=== PATIENT | female | born 1965 | race Hispanic/Latino ===

== ENCOUNTER 2021-12-12 13:20 | Outpatient (CLI) | payer MEDICARE | END 2021-12-12 13:21 | disposition home or self-care (01) | LOC: BICMAMMO 13:20 | PROVIDERS: ATTEND Internal Medicine | DX: N64.89 Other specified disorders of breast (principal); Q83.9 Congenital malformation of breast, unspecified; R92.1 Mammographic calcification found on diagnostic imaging of breast | CPT/HCPCS: 76642; 77065; G0279 ==

== ENCOUNTER 2022-01-30 12:03 | Outpatient (CLI) | payer MEDICARE ==
[2022-01-30 13:11] LABS: #Basophils 0.1 10x3/uL (0.0-0.2); #Eosinphils 0.1 10x3/uL (0.0-0.5); #Monocytes 0.6 10x3/uL (0.0-1.1); #Neutrophils 3.6 10x3/uL (1.5-8.4); %Basophils 1.2 % (0.0-2.0); %Eosinophils 1.7 % (0.0-6.0); %Lymphocytes 29.5 % (18.0-47.0); %Monocytes 9.7 % (0.0-10.0); %Neutrophils 55.9 % (40.0-75.0); Hemoglobin 11.6 g/dL (12.0-15.5); Mean Corpuscular HGB CONC 33.9 g/dL (32.0-36.0); Mean Corpuscular Hemoglobin 31.5 pg (27.0-33.0); Mean Corpuscular Volume 92.9 fl (81.6-98.3); Mean Platelet Volume 9.3 fl (7.4-10.4); Platelet Count 512 10x3/uL (150-450); RBC Distribution Width 12.7 % (11.5-14.5); Red Blood Cell (RBC) Count 3.68 10x6/uL (3.90-5.03); White Blood Cell (WBC) Count 6.5 10x3/uL (3.5-10.5)
[2022-01-30 13:28] LABS: Anion Gap 15 mmol/L (10-20); BUN (Urea Nitrogen) 15 mg/dL (9.8-20.1); Calc. Creatinine Clearance 0 mL/min (70-130); Calcium 9.4 mg/dL (7.8-10.44); Carbon Dioxide 22 mmol/L (22-29); Chloride 107 mmol/L (98-107); Estimated GFR 32; Glucose 150 mg/dL (70-105); Potassium 4.9 mmol/L (3.5-5.1); Sodium 139 mmol/L (136-145)
== END 2022-01-30 12:04 | disposition home or self-care (01) ==
LOC: LABBT 12:03
PROVIDERS: ATTEND Specialist
DX: Z01.818 Encounter for other preprocedural examination (principal); D05.02 Lobular carcinoma in situ of left breast
CPT/HCPCS: 80048; 85025; 93005; 93010

== ENCOUNTER 2022-02-04 06:03 | Day surgery (SDC) | payer MEDICARE ==
[2022-02-03 12:36] VITALS: BMI 32.1
[2022-02-04] MEDS ORDERED: Ketorolac Tromethamine 30 MG/ML VIAL ONE (06:25)
[2022-02-04] MEDS ORDERED: Acetaminophen 500 MG TAB ONE (06:25)
[2022-02-04] MEDS ORDERED: Lidocaine 2% PF 5 ML VIAL ONE (07:01)
[2022-02-04] MEDS ORDERED: Bupivacaine/Epinephrine 0.25% 30 ML VIAL ONE (07:01)
[2022-02-04] MEDS ORDERED: fentaNYL PF 100 MCG/2 ML SYRINGE ONE (07:35)
[2022-02-04] MEDS ORDERED: Midazolam HCl 2 mg/2 ml Vial ONE (07:35)
[2022-02-04] MEDS ORDERED: CEFAZOLIN 2 GM VIAL ONE (07:50)
[2022-02-04] MEDS ORDERED: Sodium Chloride 0.9% 100 ML ONE (07:50)
[2022-02-04] MEDS ORDERED: PROPOFOL 200 MG/20 ML VIAL ONE (08:09)
[2022-02-04] MEDS ORDERED: Phenylephrine 10 MG/ML VIAL ONE (08:09)
[2022-02-04] MEDS ORDERED: ePHEDrine 50 MG/ML VIAL ONE (08:09)
[2022-02-04] MEDS ORDERED: Dexamethasone 20 MG/5 ML VIAL ONE (08:09)
[2022-02-04] MEDS ORDERED: Ondansetron PF 4 MG/2 ML Vial ONE (08:09)
[2022-02-04] MEDS ORDERED: HYDROcodone/Acetaminophen 5/325 mg Tablet ONE (10:52)
== END 2022-02-04 11:12 | disposition home or self-care (01) ==
LOC: SDC 06:03
PROVIDERS: ATTEND Specialist
PROC: 0HBU0ZZ Excision of Left Breast, Open Approach (ICD-10-PCS; principal; 2022-02-04)
DX: N60.22 Fibroadenosis of left breast (principal); N60.32 Fibrosclerosis of left breast; N60.82 Other benign mammary dysplasias of left breast; I10 Essential (primary) hypertension; E78.5 Hyperlipidemia, unspecified; H54.7 Unspecified visual loss; Z79.84 Long term (current) use of oral hypoglycemic drugs; Z79.899 Other long term (current) drug therapy
CPT/HCPCS: 19281; 19301; 76098; C1713; 88307; J1100; J1885; J2001; J2250; J2370; J2405; J2704; J3490